=== PATIENT | female | born 1990 | race Caucasian/White ===

== ENCOUNTER 2021-03-22 04:37 | Emergency (ER) | payer OTHER ==
[2021-03-22 05:05] LABS: BASOPHIL 0.7 % (0-2); EOSINOPHIL 0.9 % (0-5); HGB 14.8 g/dl (12.5-16.0); LYMPHOCYTE 33.5 % (15-48); MCH 29.5 pg (25.0-31.0); MCHC 34.4 g/dL (32.0-36.0); MCV 85.7 fL (78.0-100.0); MONOCYTE 5.7 % (0-12); MPV 8.8 fL (6.0-9.5); NEUTROPHIL 58.9 % (41-80); NRBC 0; PLT 313 K/uL (150-400); RBC 5.02 M/uL (4.20-5.40)
[2021-03-22 05:11] LABS: INR 0.98 (0.9-1.2); PROTHROMBIN TIME 12.4 SECONDS (11.8-13.4); PTT 26.5 SECONDS (24.4-34.7)
[2021-03-22 05:12] LABS: D-DIMER < 0.27 ug/mLFEU (0.00-0.41)
[2021-03-22 05:15] LABS: ALBUMIN 3.8 g/dL (3.4-5.0); BILIRUBIN - TOTAL 0.3 mg/dL (0.2-1.0); BUN/CREAT RATIO (CALC) 15.8 RATIO; CREATININE 0.76 mg/dL (0.51-0.95); POTASSIUM 3.6 mmol/L (3.5-5.1); TOTAL PROTEIN 7.8 g/dL (6.4-8.2)
== END 2021-03-22 05:46 | disposition home or self-care (01) ==
LOC: FER 04:37
PROVIDERS: Emergency Medicine Emergency Medical Services
DX: R07.89 Other chest pain (principal); F41.9 Anxiety disorder, unspecified; R00.0 Tachycardia, unspecified; Z90.49 Acquired absence of other specified parts of digestive tract; Z79.899 Other long term (current) drug therapy
CPT/HCPCS: 36415; 71045; 80053; 83690; 84484; 85025; 85379; 85610; 85730; 93005